=== PATIENT | female | born 2000 | race Caucasian/White ===

== ENCOUNTER 2018-09-01 03:52 | Emergency (ER) | payer OTHER ==
[~2018-09-01] VITALS: Ht 160 cm; Wt 77.1 kg
--- NOTE | 2018-09-01 04:12 | ED.ADGEN ---
Past History Past Medical History: No Pertinent History, UTI (SERGIO LAI MD) Past Surgical History: Tonsillectomy, Other (SERGIO LAI MD) Alcohol Use: None Drug Use: None (SERGIO LAI MD) Adult General Chief Complaint Chief Complaint " I got up to feed my baby.... And while at his feet and her developed severe right lower abdomen pain... It was sharp... And has never really let up completely..." (SERGIO LAI MD) HPI HPI Patient is a 18 year old female who presents with above hx and complaints of severe right lower abdomen pain. Patient recently vaginal delivery on 08/06/2018. . Patient ate pizza for dinner tonight. No history of bad food intake. No History of travel. No history of trauma. No history of specific ill contacts. Patient has had no history of colitis or Crohn's. Patient's had no history of kidney stones. Patient has no history of gallbladder disease. There is a strong family history of ovarian cysts and gallbladder disease. Mother had her gallbladder out at age 23. Patient has had periodic urinary tract infections. Patient had normal stools today and no specific complaints of dysuria. Patient has had some vaginal discharge since the delivery. Patient has had 4 lifetime sex partners. No history of STDs. Patient follows at [facility]. (SERGIO LAI MD) Review of Systems Review of Systems Constitutional: Denies fever or chills [] Eyes: Denies change in visual acuity, redness, or eye pain [] HENT: Denies nasal congestion or sore throat [] Respiratory: Denies cough or shortness of breath [] Cardiovascular: No additional information not addressed in HPI [] GI: Complaints of right lower abdominal pain, nausea. Denies, vomiting, bloody stools or diarrhea [] : Denies dysuria or hematuria [] Musculoskeletal: Denies back pain or joint pain [] Integument: Denies rash or skin lesions [] Neurologic: Denies headache, focal weakness or sensory changes [] Endocrine: Denies polyuria or polydipsia [] All other systems were reviewed and found to be within normal limits, except as documented in this note. (SERGIO LAI MD) Family History Family History Mother has history of gallbladder disease ovarian cyst (SERGIO LAI MD) Current Medications Current Medications Current Medications Medications (Trade) Dose Ordered Sig/[place] Start Time Stop Time Status Last Admin Dose Admin Ceftriaxone Sodium 1 gm/ Sodium Chloride 50 ml @ 100 mls/hr 1X ONCE 09/01/18 06:00 09/01/18 06:29 DC 09/01/18 05:57 100 MLS/HR Ceftriaxone Sodium (Rocephin) 1 gm STK-MED ONCE 09/01/18 05:51 09/01/18 05:52 DC Famotidine (Pepcid Vial) 20 mg 1X ONCE 09/01/18 04:30 09/01/18 04:52 DC 09/01/18 04:50 20 MG Info (Do NOT chart on this entry -- for MONITORING) 1 each PRN DAILY PRN 09/01/18 05:30 09/01/18 10:24 DC Iohexol (Omnipaque 240 Mg/ml) 30 ml 1X ONCE 09/01/18 06:00 09/01/18 06:01 DC 09/01/18 06:30 30 ML Iohexol (Omnipaque 300 Mg/ml) 75 ml 1X ONCE 09/01/18 06:00 09/01/18 06:01 DC 09/01/18 06:30 75 ML Lactated Ringer's 1,000 ml @ 1,000 mls/hr Q1H 09/01/18 04:23 09/01/18 05:22 DC 09/01/18 04:51 1,000 MLS/HR Ondansetron HCl (Zofran) 4 mg 1X ONCE 09/01/18 04:30 09/01/18 04:52 DC 09/01/18 04:50 4 MG Piperacillin Sod/ Tazobactam Sod (Zosyn) 4.5 gm STK-MED ONCE 09/01/18 08:16 09/01/18 08:17 DC Piperacillin Sod/ Tazobactam Sod 4.5 gm/Sodium Chloride 50 ml @ 100 mls/hr 1X ONCE 09/01/18 08:30 09/01/18 08:59 DC 09/01/18 08:31 100 MLS/HR Sodium Chloride 50 ml @ As Directed STK-MED ONCE 09/01/18 08:16 09/01/18 08:17 DC (IZAIAH MEDINA DO) Current Medications See nursing for home medications (SERGIO LAI MD) Allergies Allergies Allergies Coded Allergies Type Severity Reaction Last Updated Verified No Known Allergies Allergy Unknown 09/01/18 Yes (IZAIAH MEDINA DO) Allergies No known drug allergies (SERGIO LAI MD) Physical Exam Physical Exam Constitutional: Well developed, well nourished, moderately acute distress, non- toxic appearance. [] HENT: Normocephalic, atraumatic, bilateral external ears normal, oropharynx moist, no oral exudates, nose normal. [] Eyes: PERRLA, EOMI, conjunctiva pale, no discharge. [] Neck: Normal range of motion, no tenderness, supple, no stridor. [] Cardiovascular:Heart rate regular rhythm, no murmur [] Lungs & Thorax: Bilateral breath sounds equal at apexes auscultation [] Abdomen: Bowel sounds decreased, soft, right lower quadrant tenderness, no masses, no pulsatile masses. Rebound to right lower quadrant. Patient has no flank tenderness on percussion but does have some radiation of pain to right lower quadrant with flank percussion. Patient patient on exam shows dissolvable sutures from previous episiotomy. There is some discharge. No bleeding. Does have adnexal tenderness on the right. Rectal hard stool no active bleeding. Skin: Warm, dry, no erythema, no rash. [] Back: No tenderness, no CVA tenderness. [] Extremities: No tenderness, no cyanosis, no clubbing, ROM intact, no edema. [] Neurologic: Alert and oriented X 3, normal motor function, normal sensory function, no focal deficits noted. [] Psychologic: Affect anxious, judgement normal, mood normal. [] (SERGIO LAI MD) Current Patient Data Vital Signs Vital Signs Date Time Temp Pulse Resp B/P (MAP) Pulse Ox O2 Delivery O2 Flow Rate FiO2 09/01/18 09:01 77 16 119/77 (91) 97 Room Air 09/01/18 04:02 98.2 (IZAIAH MEDINA DO) Lab Results Laboratory Tests Test 09/01/18 04:20 09/01/18 04:30 White Blood Count 10.9 x10^3/uL (4.0-11.0) Red Blood Count 4.92 x10^6/uL (3.50-5.40) Hemoglobin 11.7 g/dL (12.0-15.5) L Hematocrit 36.7 % (36.0-47.0) Mean Corpuscular Volume 75 fL (79-100) L Mean Corpuscular Hemoglobin 24 pg (25-35) L Mean Corpuscular Hemoglobin Concent 32 g/dL (31-37) Red Cell Distribution Width 18.0 % (11.5-14.5) H Platelet Count 394 x10^3/uL (140-400) Neutrophils (%) (Auto) 70 % (31-73) Lymphocytes (%) (Auto) 20 % (24-48) L Monocytes (%) (Auto) 8 % (0-9) Eosinophils (%) (Auto) 2 % (0-3) Basophils (%) (Auto) 1 % (0-3) Neutrophils # (Auto) 7.7 x10^3uL (1.8-7.7) Lymphocytes # (Auto) 2.2 x10^3/uL (1.0-4.8) Monocytes # (Auto) 0.9 x10^3/uL (0.0-1.1) Eosinophils # (Auto) 0.2 x10^3/uL (0.0-0.7) Basophils # (Auto) 0.1 x10^3/uL (0.0-0.2) Prothrombin Time 9.4 SEC (9.4-11.4) Prothrombin Time INR 0.9 (0.9-1.1) PTT 28 SEC (23-33) Maternal Serum HCG Beta Subunit 1 mIU/mL (0-6) Sodium Level 139 mmol/L (136-145) Potassium Level 3.3 mmol/L (3.5-5.1) L Chloride Level 102 mmol/L (98-107) Carbon Dioxide Level 29 mmol/L (21-32) Anion Gap 8 (6-14) Blood Urea Nitrogen 11 mg/dL (7-20) Creatinine 0.8 mg/dL (0.6-1.0) Estimated GFR (Cockcroft-Gault) 91.4 Glucose Level 91 mg/dL (70-99) Calcium Level 9.6 mg/dL (8.5-10.1) Total Bilirubin 0.3 mg/dL (0.2-1.0) Direct Bilirubin 0.1 mg/dL (0.0-0.2) Aspartate Amino Transferase (AST) 30 U/L (15-37) Alanine Aminotransferase (ALT) 25 U/L (14-59) Alkaline Phosphatase 188 U/L (46-116) H Total Protein 8.9 g/dL (6.4-8.2) H Albumin 3.5 g/dL (3.4-5.0) Lipase 152 U/L (73-393) Urine Collection Type Unknown Urine Color Yellow Urine Clarity Hazy Urine pH 6.0 Urine Specific [place] 1.025 Urine Protein 30 mg/dl (NEG-TRACE) Urine Glucose (UA) Neg mg/dL (NEG) Urine Ketones (Stick) Trace mg/dL (NEG) Urine Blood Mod (NEG) Urine Nitrite Neg (NEG) Urine Bilirubin Neg (NEG) Urine Urobilinogen Dipstick 0.2 mg/dL (0.2 mg/dL) Urine Leukocyte Esterase Mod (NEG) Urine RBC Occ /HPF (0-2) Urine WBC 11-20 /HPF (0-4) Urine Squamous Epithelial Cells Mod /LPF Urine Bacteria Few /HPF (0-FEW) Urine Opiates Screen Pos (NEG) Urine Methadone Screen Neg (NEG) Urine Barbiturates Neg (NEG) Urine Phencyclidine Screen Neg (NEG) Urine Amphetamine/Methamphetamine Neg (NEG) Urine Benzodiazepines Screen Neg (NEG) Urine Cocaine Screen Neg (NEG) Urine Cannabinoids Screen Neg (NEG) Urine Ethyl Alcohol Neg (NEG) Microbiology 09/01/18 Wet Prep - Final, Complete (IZAIAH MEDINA DO) Lab Results Microbiology 09/01/18 Wet Prep - Final, Complete (SERGIO LAI MD) EKG EKG [] (SERGIO LAI MD) Radiology/Procedures Radiology/Procedures I interpretation of abdomen film shows no acute cardiopulmonary findings. No free air under the diaphragm.[] None. Bowel gas pattern. There is stool in right colon. CT of abdomen pending at 607 (SERGIO LAI MD) Impressions: INDICATION: RLQ PAIN WITH CONSTIPATION ONSET THIS MORNING. ORAL AND 75MLS OMNI 300 IV CONTRAST COMPARISON: None. TECHNIQUE: Axial CT images obtained through the abdomen and pelvis with contrast. One or more of the following individualized dose reduction techniques were utilized for this examination: 1. Automated exposure control; 2. Adjustment of the mA and/or kV according to patient size; 3. Use of iterative reconstruction technique. FINDINGS: Mild opacity at bilateral lung bases dependently. Abdominal aorta is not aneurysmal. Mild prominence of the intrahepatic bile ducts. Suspected trace right and left pleural effusion. Contracted gallbladder with suspicion for gallstones. No peripancreatic fluid collection. Spleen appears prominent in size. Prominence of the right extrarenal pelvis. Urinary bladder is partially distended with mild prominence the wall. There is some fullness of the right adnexa. Free fluid is seen within the pelvis as well as edema small amount of fluid seen within the abdomen including on the right side adjacent to the colon. At the right side of the colon there is a region of masslike wall thickening anteriorly measuring up to about 2.1 cm in thickness. Inferior to this region the patients appendix is visualized coursing through the region and measuring up to approximately 6-7 mm with a portion of the appendix not seen. There is some edema and free fluid within this area. There are some scattered prominent lymph nodes adjacent. No dilated loops of bowel suggest obstruction. There are some edema to the fat in the upper abdomen. IMPRESSION: 1. Masslike wall thickening is identified at the anterior aspect of the ascending colon including the cecal region with adjacent edema and free fluid. In addition the patient's appendix is visualized in this region and is borderline dilated measuring up to approximately 6-7 mm. Given the masslike thickening of the colon the colonic process appears to be the dominant inflammatory process within the region and this area of masslike thickening could be secondary to a focal colitis. A colonic neoplasm would be rare in a patient of this age but this does have a focal masslike appearance therefore a follow-up could be obtained to ensure this resolves to exclude neoplastic causes. The patient's appendix is also seen adjacent to this region and is borderline dilated and does extend through the region of edema and fluid. Given the borderline size as well as the adjacent edema and fluid additional inflammation to the appendix from appendicitis is possible however this finding does appear less severe than the adjacent colonic process. 2. 9 mm fat-containing lesion lower pole right kidney. Can be seen with angiomyolipoma. 3. Contracted gallbladder with gallstones. There is also some haziness to the fat in the right upper quadrant but there is haziness to the fat elsewhere within the abdomen and pelvis as well. Would correlate with symptoms in the region it may be helpful to obtain a focused ultrasound to further evaluate for gallbladder disease. 4. Mild prominence of the intrahepatic bile ducts. There is also possible stones seen within the gallbladder neck to cystic duct region but this can be further evaluated on ultrasound. 5. Mild fullness of the right adnexa. Could be secondary to some loops of bowel within the region but enlargement of the right ovary or right ovarian lesion is possible and a follow-up ultrasound could better evaluate. Electronically signed by: Karina Kaufman MD (09/01/2018 7:10 AM) [facility] [place] DICTATED AND SIGNED BY: KARINA KAUFMAN MD DATE: 09/01/18 0654 CC: IZAIAH MEDINA DO; RAZIA CARRASCO; SERGIO LAI MD ~ (IZAIAH MEDINA DO) Course & Med Decision Making Course & Med Decision Making Pertinent Labs and Imaging studies reviewed. (See chart for details) CT pending at shift change. Dr. Medina make disposition of patient. [] (SERGIO LAI MD) Course & Med Decision Making CT of the abdomen and pelvis is suspicious for a mass in the colon around the cecum. A focal colitis is also possible. The appendix is also dilated to borderline maximum value and courses through surrounding edema. Appendicitis cannot be excluded. She does not have an elevated white count or left shift in her labs. I will discuss the case with general surgery. Dr. Sheridan, general surgery was consult on the case and he has requested the patient be given Zosyn in the ED and then transferred to [facility] for further evaluation and care. I discussed the case with the hospitalist, Dr. Kenyon and he has accepted the patient for transfer to [place]. I reviewed all of these results and the plan with the patient and she is in agreement with transfer. (IZAIAH MEDINA DO) Final Impression Final Impression 1. Abdomen pain[]-right lower quadrant pain 2. UTI 3. Elevated alkaline [id number] 4. Mild hypokalemia 3.3 5. Microcytic hypochromic anemia 11.7 6. Post vaginal delivery July (SERGIO LAI MD) Final Impression 1. Appendicitis 2. Colon mass 3. Right lower quadrant pain 4. Mild hypokalemia (IZAIAH MEDINA DO) Dragon Disclaimer Dragon Disclaimer This electronic medical record was generated, in whole or in part, using a voice recognition dictation system. (SERGIO LAI MD) SERGIO LAI MD Sep 01, 2018 04:12 IZAIAH MEDINA DO Sep 01, 2018 07:35
[2018-09-01] MEDS ORDERED: IV RINGERS SOLUTION,LACTATED 1,000 ML IV SCH (04:23)
[2018-09-01] MEDS ORDERED: ONDANSETRON PF 4 MG/2 ML VIAL. IV ONE (04:30)
[2018-09-01] MEDS ORDERED: FAMOTIDINE 20 MG/2 ML VIAL IVP ONE (04:30)
[2018-09-01 04:46] LABS: BASO # 0.1 x10^3/uL (0.0-0.2); BASO % 1 % (0-3); EOS # 0.2 x10^3/uL (0.0-0.7); EOS % 2 % (0-3); HEMATOCRIT 36.7 % (36.0-47.0); HEMOGLOBIN 11.7 g/dL (12.0-15.5); LYMPH # 2.2 x10^3/uL (1.0-4.8); LYMPH % 20 % (24-48); MEAN CORPUSCULAR HEMOGLOBIN 24 pg (25-35); MEAN CORPUSCULAR HGB CONC 32 g/dL (31-37); MEAN CORPUSCULAR VOLUME 75 fL (79-100); MONO # 0.9 x10^3/uL (0.0-1.1); MONO % 8 % (0-9); NEUT # 7.7 x10^3uL (1.8-7.7); NEUT % 70 % (31-73); PLATELET COUNT 394 x10^3/uL (140-400); RED BLOOD COUNT 4.92 x10^6/uL (3.50-5.40); WHITE BLOOD COUNT 10.9 x10^3/uL (4.0-11.0)
[2018-09-01 04:51] LABS: BARBITURATES NEG (NEG); BENZODIAZEPINES NEG (NEG); CANNABINOIDS NEG (NEG); COCAINE NEG (NEG); METHADONE NEG (NEG); OPIATES POS (NEG); PHENCYCLIDINE NEG (NEG)
[2018-09-01 04:53] LABS: BACTERIA,URINE FEW /HPF (0-FEW); BILIRUBIN,URINE NEG (NEG); CLARITY,URINE HAZY; COLOR,URINE YELLOW; GLUCOSE,URINE NEG (NEG); NITRITE,URINE NEG (NEG); RBC,URINE OCC /HPF (0-2); UROBILINOGEN,URINE 0.2 mg/dL (0.2 mg/dL)
[2018-09-01 04:54] LABS: SQUAMOUS EPITHELIAL CELL,UR MOD /LPF
[2018-09-01 04:55] LABS: AMPHETAMINE/METHAMPHETAMINE NEG (NEG)
[2018-09-01 05:00] LABS: ALBUMIN 3.5 g/dL (3.4-5.0); CALCIUM 9.6 mg/dL (8.5-10.1); CREATININE 0.8 mg/dL (0.6-1.0); DIRECT BILIRUBIN 0.1 mg/dL (0.0-0.2); GFR 91.4; POTASSIUM 3.3 mmol/L (3.5-5.1); TOTAL BILIRUBIN 0.3 mg/dL (0.2-1.0); TOTAL PROTEIN 8.9 g/dL (6.4-8.2)
[2018-09-01] MEDS ORDERED: CONTRAST GIVEN MC PRN (05:30)
[2018-09-01] MEDS ORDERED: IV NORMAL SALINE 50ML 50 ML ONE ×2 (05:51→08:16)
[2018-09-01] MEDS ORDERED: cefTRIAXone SODIUM 1 GM VIAL IV ONE (05:51)
[2018-09-01] MEDS ORDERED: IOHEXOL 300 MG/ML 75 ML VIAL. IV ONE (06:00)
[2018-09-01] MEDS ORDERED: IOHEXOL 240 MG/ML 50ML VIAL. PO ONE (06:00)
--- NOTE | 2018-09-01 07:14 | RAD ---
INDICATION: RLQ PAIN WITH CONSTIPATION ONSET THIS MORNING. ORAL AND 75MLS OMNI 300 IV CONTRAST COMPARISON: None. TECHNIQUE: Axial CT images obtained through the abdomen and pelvis with contrast. One or more of the following individualized dose reduction techniques were utilized for this examination: 1. Automated exposure control; 2. Adjustment of the mA and/or kV according to patient size; 3. Use of iterative reconstruction technique. FINDINGS: Mild opacity at bilateral lung bases dependently. Abdominal aorta is not aneurysmal. Mild prominence of the intrahepatic bile ducts. Suspected trace right and left pleural effusion. Contracted gallbladder with suspicion for gallstones. No peripancreatic fluid collection. Spleen appears prominent in size. Prominence of the right extrarenal pelvis. Urinary bladder is partially distended with mild prominence the wall. There is some fullness of the right adnexa. Free fluid is seen within the pelvis as well as edema small amount of fluid seen within the abdomen including on the right side adjacent to the colon. At the right side of the colon there is a region of masslike wall thickening anteriorly measuring up to about 2.1 cm in thickness. Inferior to this region the patients appendix is visualized coursing through the region and measuring up to approximately 6-7 mm with a portion of the appendix not seen. There is some edema and free fluid within this area. There are some scattered prominent lymph nodes adjacent. No dilated loops of bowel suggest obstruction. There are some edema to the fat in the upper abdomen. IMPRESSION: 1. Masslike wall thickening is identified at the anterior aspect of the ascending colon including the cecal region with adjacent edema and free fluid. In addition the patient's appendix is visualized in this region and is borderline dilated measuring up to approximately 6-7 mm. Given the masslike thickening of the colon the colonic process appears to be the dominant inflammatory process within the region and this area of masslike thickening could be secondary to a focal colitis. A colonic neoplasm would be rare in a patient of this age but this does have a focal masslike appearance therefore a follow-up could be obtained to ensure this resolves to exclude neoplastic causes. The patient's appendix is also seen adjacent to this region and is borderline dilated and does extend through the region of edema and fluid. Given the borderline size as well as the adjacent edema and fluid additional inflammation to the appendix from appendicitis is possible however this finding does appear less severe than the adjacent colonic process. 2. 9 mm fat-containing lesion lower pole right kidney. Can be seen with angiomyolipoma. 3. Contracted gallbladder with gallstones. There is also some haziness to the fat in the right upper quadrant but there is haziness to the fat elsewhere within the abdomen and pelvis as well. Would correlate with symptoms in the region it may be helpful to obtain a focused ultrasound to further evaluate for gallbladder disease. 4. Mild prominence of the intrahepatic bile ducts. There is also possible stones seen within the gallbladder neck to cystic duct region but this can be further evaluated on ultrasound. 5. Mild fullness of the right adnexa. Could be secondary to some loops of bowel within the region but enlargement of the right ovary or right ovarian lesion is possible and a follow-up ultrasound could better evaluate. Electronically signed by: Jb Rosa MD (09/01/2018 7:10 AM) [id number]
--- NOTE | 2018-09-01 08:09 | RAD ---
Acute abdominal series. 09/01/2018 4:53 AM Indication: Right sided abdomen pain today Comparison Study: None Discussion: There is no focal consolidation. There is no pleural effusion or pneumothorax. The cardiomediastinal silhouette and pulmonary vasculature are within normal limits. No pneumoperitoneum is identified. The bowel gas pattern is nonobstructive . Probable cholelithiasis is present in the right upper quadrant. No acute osseous abnormalities are seen. Impression: 1. No radiographic evidence of acute cardiopulmonary or intra-abdominal process. 2 . Probable cholelithiasis Electronically signed by: Jasbir Abbasi MD (09/01/2018 8:05 AM) [id number]
[2018-09-01] MEDS ORDERED: PIPERACILLIN/TAZOBACTAM 4.5 GM VIAL IV ONE (08:16)
[2018-09-01] MEDS ORDERED: PIPERACILLIN/TAZOBACTAM 4.5 GM in IV NORMAL SALINE 50ML 50 ML IV ONE (08:30)
[2018-09-01 09:01] VITALS: BP 119/77
[2018-09-02 15:08] LABS: CHLAMYDIA PROBE Positive (Negative)
== END 2018-09-01 10:00 | disposition short-term general hospital (02) ==
LOC: ER 03:52
DX: O86.20 Urinary tract infection following delivery, unspecified (principal); R74.8 Abnormal levels of other serum enzymes; O90.89 Other complications of the puerperium, not elsewhere classified; O99.63 Diseases of the digestive system complicating the puerperium; O90.81 Anemia of the puerperium; E87.6 Hypokalemia; K63.89 Other specified diseases of intestine; K37 Unspecified appendicitis
CPT/HCPCS: 36415; 74022; 74177; 80048; 80076; 80307; 81001; 83690; 84702; 85025; 85610; 85730; 86850; 86900; 86901; 87086; 87491; 87591; 96365; 96366; 96368; 96375; 99285; J0696; J2405; J2543; J7120; Q0111; Q9966; Q9967; S0028; G0479